=== PATIENT | male | born 1965 | race Caucasian/White ===

== ENCOUNTER 2017-02-11 08:33 | Inpatient (IN) | payer OTHER ==
[2017-02-11 10:08] VITALS: BMI 29.5
--- NOTE | 2017-02-11 12:17 | HP ---
CIWA Score - CIWA Score Nausea/Vomitin Muscle Tremors: 3 Anxiety: 3 Agitation: 3 Paroxysmal Sweats: 1-Minimal Palms Moist Orientation: 0-Oriented Tacttile Disturbances: 2-Mild Itch/Numbness/Burn Auditory Disturbances: 2-Mild Harshness/Frighten Visual Disturbances: 1-Very Mild Sensitivity Headache: 2-Mild CIWA-Ar Total Score: 20 Admission ROS BHS - HPI Chief Complaint: i need help to stop drinking alcohol Allergies/Adverse Reactions: Allergies Allergy/AdvReac Type Severity Reaction Status Date / Time No Known Allergies Allergy Verified 02/11/17 10:21 History of Present Illness: this 51 years old male with alcohol dependence,seeking detox,never been in detox before syncope nicotine dependence longest period of sobriety 18 months Exam Limitations: No Limitations - Ebola screening Have you been sick,other than usual withdrawal symptoms: No - Review of Systems Constitutional: Loss of Appetite, Malaise, Night Sweats, Changes in sleep, Weakness EENT: reports: Nose Congestion Respiratory: reports: No Symptoms reported Cardiac: reports: No Symptoms Reported GI: reports: Diarrhea, Nausea, Vomiting, Abdominal cramping : reports: No Symptoms Reported Musculoskeletal: reports: Back Pain, Muscle Pain Integumentary: reports: Dryness Endocrine: reports: No Symptoms Reported Hematology: reports: No Symptoms Reported Psychiatric: reports: No Sypmtoms Reported, Judgement Intact, Mood/Affect Appropiate, Orientated x3 Other Systems: Reviewed and Negative Patient History - Patient Medical History Hx Anemia: No Hx Asthma: No Hx Chronic Obstructive Pulmonary Disease (COPD): No Hx Cancer: No Hx Cardiac Disorders: No Hx Congestive Heart Failure: No Hx Hypertension: No Hx Hypercholesterolemia: No Hx Pacemaker: No HX Cerebrovascular Accident: No Hx Seizures: No Hx Dementia: No Hx Diabetes: No Hx Gastrointestinal Disorders: No Hx Liver Disease: No Hx Genitourinary Disorders: No Hx Sexually Transmitted Disorders: No Hx Renal Disease (ESRD): No Hx Thyroid Disease: No Hx Human Immunodeficiency Virus (HIV): No (last10/31 negative) Hx Hepatitis C: No Hx Depression: No Hx Suicide Attempt: No Hx Bipolar Disorder: No Hx Schizophrenia: No Other Medical History: no suicidal,no homicidal - Patient Surgical History Past Surgical History: Yes Hx Neurologic Surgery: No Hx Cataract Extraction: No Hx Cardiac Surgery: No Hx Lung Surgery: No Hx Breast Surgery: No Hx Breast Biopsy: No Hx Abdominal Surgery: No Hx Appendectomy: No Hx Cholecystectomy: No Hx Genitourinary Surgery: No Hx Orthopedic Surgery: Yes (fx, left elbow in 2009/right elbow in 2011) Anesthesia Reaction: No - PPD History Previous Implant?: Yes Documented Results: Negative w/o proof Implanted On Prior [facility] Admission?: No PPD to be Administered?: Yes - Smoking Cessation Smoking history: Current every day smoker Have you smoked in the past 12 months: Yes Aproximately how many cigarettes per day: 4 Hx Chewing Tobacco Use: No Initiated information on smoking cessation: Yes 'Breaking Loose' booklet given: 02/11/17 - Substance & Tx. History Hx Alcohol Use: Yes Hx Substance Use: No Substance Use Type: Alcohol Hx Substance Use Treatment: No - Substances Abused Alcohol-vodka Route: Oral Frequency: Daily Amount used: 2 pts. Age of first use: 18 Date of Last Use: 02/10/17 Family Disease History - Family Disease History Family History: Denies Admission Physical Exam [facility] - Vital Signs Vital Signs: Vital Signs - 24 hr 02/11/17 10:04 Temperature 97.9 F Pulse Rate 65 Respiratory 18 Rate Blood Pressure 152/93 - Physical General Appearance: Yes: Moderate Distress, Tremorous, Irritable, Sweating HEENTM: Yes: Normal ENT Inspection, DARIAN, Pharynx Normal Respiratory: Yes: Lungs Clear, Normal Breath Sounds, No Respiratory Distress Neck: Yes: Within Normal Limits, Supple, Trachea in good position Breast: Yes: Within Normal Limits Cardiology: Yes: Within Normal Limits, Regular Rhythm, Regular Rate, S1, S2 Abdominal: Yes: Within Normal Limits, Normal Bowel Sounds, Non Tender, Flat, Soft Genitourinary: Yes: Within Normal Limits Back: Yes: Muscle Spasm Musculoskeletal: Yes: Back pain, Joint Stiffness, Muscle Pain Extremities: Yes: Tremors, Other (scar in both elbows with deformity) 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, Alert, Motor Strength 5/5 Integumentary: Yes: Dry Lymphatic: Yes: Within Normal Limits - Diagnostic (1) Alcohol dependence with uncomplicated withdrawal Current Visit: Yes Status: Acute (2) Syncope Current Visit: Yes Status: Acute (3) Nicotine dependence Current Visit: Yes Status: Acute (4) Fracture of both elbows Current Visit: Yes Status: Acute Cleared for Admission S - Detox or Rehab [facility] Level of Care: Medically Managed Detox Regimen/Protocol: Librium [facility] Breath Alcohol Content Breath Alcohol Content: 0 Urine Drug Screen - Results Drug Screen Negative: Yes
[2017-02-11] MEDS ORDERED: P-EPHED 60MG/TRIPROLIDI 2.5MG TABLET PO PRN (12:36)
[2017-02-11] MEDS ORDERED: hydrOXYzine PAMOATE 50 MG CAPSULE (FP) PO PRN (12:36)
[2017-02-11] MEDS ORDERED: guaiFENesin/D-METHORPHAN HB 10 ML UNIT-DOSE CUPS PO PRN (12:36)
[2017-02-11] MEDS ORDERED: NICOTINE POLACRILEX 2 MG GUM BUC PRN (12:36)
[2017-02-11] MEDS ORDERED: chlordiazePOXIDE HCL 25 MG CAPSULE PO PRN (12:36)
[2017-02-11] MEDS ORDERED: MAG HYDROX/AL HYDROX/SIMETH 30 ML UNIT-DOSE CUP PO PRN (12:36)
[2017-02-11] MEDS ORDERED: MAGNESIUM HYDROX 2400MG/30ML ORAL SUSPENSION 30 ML CUP PO PRN (12:36)
[2017-02-11] MEDS ORDERED: ACETAMINOPHEN 325 MG TABLET (FP) PO PRN (12:36)
[2017-02-11] MEDS ORDERED: MAGNESIUM CITRATE 300 ML BOTTLE PO PRN (12:36)
[2017-02-11] MEDS ORDERED: MENTHOL/PHENOL 1 EACH UD MM PRN (12:36)
[2017-02-11] MEDS ORDERED: LOPERAMIDE HCL 2 MG CAPSULE PO PRN (12:36)
[2017-02-11] MEDS ORDERED: IBUPROFEN 400 MG TABLET (FP) PO PRN (12:36)
[2017-02-11] MEDS ORDERED: chlordiazePOXIDE HCL 25 MG CAPSULE PO ONE (12:50)
[2017-02-11] MEDS: NICOTINE 14 MG/24 HOURS TOPICAL PATCH TD SCH (13:43)
--- NOTE | 2017-02-11 15:54 | EKG ---
Test Reason : Blood Pressure : / mmHG Vent. Rate : 076 BPM Atrial Rate : 076 BPM P-R Int : 156 ms QRS Dur : 082 ms QT Int : 382 ms P-R-T Axes : 055 051 031 degrees QTc Int : 429 ms NORMAL SINUS RHYTHM WITH SINUS ARRHYTHMIA NORMAL ECG NO PREVIOUS ECGS AVAILABLE Confirmed by CARI KIM, SIA ([id number]) on 02/11/2017 3:53:56 PM Referred By: Don Greenberg Confirmed By:SIA ALCALA MD
[2017-02-11] MEDS: chlordiazePOXIDE HCL 25 MG CAPSULE PO SCH ×2 (17:23→22:30)
[2017-02-11 21:58] LABS: URINE APPEARANCE TURBID; URINE BILIRUBIN NEGATIVE (NEGATIVE); URINE BLOOD NEGATIVE (NEGATIVE); URINE COLOR AMBER; URINE GLUCOSE (UA) 2+ (NEGATIVE); URINE KETONE TRACE (NEGATIVE); URINE LEUK ESTERASE NEGATIVE (NEGATIVE); URINE NITRITE NEGATIVE (NEGATIVE); URINE UROBILINOGEN NEGATIVE mg/dL (0.2-1.0)
[2017-02-11 21:59] LABS: URINE PROTEIN 1+ (NEGATIVE)
[2017-02-11 22:04] LABS: URINE MUCUS MANY; URINE RBC 12 /hpf (0-3); URINE WBC 107 /hpf (3-5)
[2017-02-11] MEDS: diphenhydrAMINE HCL 50 MG CAPSULE PO PRN (22:30)
[2017-02-11] MEDS: THIAMINE HCL 100 MG TABLET (FP) PO SCH (22:30)
[2017-02-12] MEDS: chlordiazePOXIDE HCL 25 MG CAPSULE PO SCH ×4 (05:59→22:23)
[2017-02-12 09:40] LABS: MCH 32.5 pg (25.7-33.7); MCHC 33.8 g/dl (32.0-35.9); MEAN CELL VOLUME 96.2 fl (80-96); MEAN PLT VOLUME 8.8 fl (7.5-11.1); PLATELET COUNT 154 K/MM3 (134-434); WHITE BLOOD COUNT 5.2 K/mm3 (4.0-10.0)
[2017-02-12 10:01] LABS: ALBUMIN 4.2 g/dl (3.4-5.0); ALK PHOS 76 U/L (45-117); ANION GAP 4 (8-16); BILIRUBIN,TOTAL 1.1 mg/dL (0.2-1.0); CO2 29 mmol/L (21-32); CREATININE 0.9 mg/dL (0.7-1.3); GLUCOSE,RANDOM 120 mg/dL (74-106); SGOT/AST 55 U/L (15-37); SGPT/ALT 71 U/L (12-78); TOT PROT 7.7 g/dl (6.4-8.2)
[2017-02-12] MEDS: PRENATAL VITAMINS W/ FOLIC ACID TABLET (FP) PO SCH (10:48)
[2017-02-12] MEDS: NICOTINE 14 MG/24 HOURS TOPICAL PATCH TD SCH (10:49)
--- NOTE | 2017-02-12 14:50 | PN ---
S CIWA - CIWA Score Nausea/Vomitin-No Nausea/No Vomiting Muscle Tremors: 5 Anxiety: 3 Agitation: 0-Normal Activity Paroxysmal Sweats: No Perspiration Orientation: 0-Oriented Tacttile Disturbances: 2-Mild Itch/Numbness/Burn Auditory Disturbances: 2-Mild Harshness/Frighten Visual Disturbances: 2-Mild Sensitivity Headache: 4-Moderately Severe CIWA-Ar Total Score: 18 BHS Progress Note (SOAP) Subjective: Tremors, H/A, Fatigue, Sweating. Objective: PT. A & O X 3, OBSERVED AMBULATING ON UNIT. NO ACUTE DISTRESS. 02/12/17 14:48 Vital Signs Temperature 96.4 F L 02/12/17 13:18 Pulse Rate 97 H 02/12/17 13:18 Respiratory Rate 18 02/12/17 13:18 Blood Pressure 138/76 02/12/17 13:18 O2 Sat by Pulse Oximetry (%) Laboratory Tests 02/11/17 02/12/17 02/12/17 21:00 06:00 06:00 WBC 5.2 RBC 4.13 Hgb 13.4 Hct 39.8 MCV 96.2 H MCH 32.5 MCHC 33.8 RDW 14.0 Plt Count 154 MPV 8.8 Sodium 139 Potassium 4.5 Chloride 106 Carbon Dioxide 29 Anion Gap 4 L BUN 15 Creatinine 0.9 Creat Clearance w eGFR > 60 Random Glucose 120 H Calcium 9.0 Total Bilirubin 1.1 H AST 55 H ALT 71 Alkaline Phosphatase 76 Total Protein 7.7 Albumin 4.2 Urine Color Jennifer Urine Appearance Turbid Urine pH 5.0 Ur Specific [place] >= 1.030 H Urine Protein 1+ H Urine Glucose (UA) 2+ H Urine Ketones Trace H Urine Blood Negative Urine Nitrite Negative Urine Bilirubin Negative Urine Urobilinogen Negative Urine RBC 12 Urine WBC 107 Urine Mucus Many RPR Titer 02/12/17 06:00 WBC RBC Hgb Hct MCV MCH MCHC RDW Plt Count MPV Sodium Potassium Chloride Carbon Dioxide Anion Gap BUN Creatinine Creat Clearance w eGFR Random Glucose Calcium Total Bilirubin AST ALT Alkaline Phosphatase Total Protein Albumin Urine Color Urine Appearance Urine pH Ur Specific [place] Urine Protein Urine Glucose (UA) Urine Ketones Urine Blood Urine Nitrite Urine Bilirubin Urine Urobilinogen Urine RBC Urine WBC Urine Mucus RPR Titer Nonreactive LABS NOTED. Assessment: 02/12/17 14:49 WITHDRAWAL SYMPTOMS. Plan: CONTINUE DETOX.
[2017-02-12] MEDS: THIAMINE HCL 100 MG TABLET (FP) PO SCH (22:23)
[2017-02-12] MEDS: diphenhydrAMINE HCL 50 MG CAPSULE PO PRN (22:23)
[2017-02-13] MEDS: chlordiazePOXIDE HCL 25 MG CAPSULE PO SCH ×2 (05:57→10:55)
[2017-02-13 10:15] LABS: URINE APPEARANCE CLEAR; URINE BILIRUBIN NEGATIVE (NEGATIVE); URINE BLOOD NEGATIVE (NEGATIVE); URINE COLOR LTYELLOW; URINE GLUCOSE (UA) 1+ (NEGATIVE); URINE KETONE NEGATIVE (NEGATIVE); URINE LEUK ESTERASE NEGATIVE (NEGATIVE); URINE NITRITE NEGATIVE (NEGATIVE); URINE PROTEIN NEGATIVE (NEGATIVE); URINE UROBILINOGEN NEGATIVE mg/dL (0.2-1.0)
[2017-02-13] MEDS: PRENATAL VITAMINS W/ FOLIC ACID TABLET (FP) PO SCH (10:55)
[2017-02-13] MEDS: NICOTINE 14 MG/24 HOURS TOPICAL PATCH TD SCH (10:55)
--- NOTE | 2017-02-13 15:35 | PN ---
[facility] CIWA - CIWA Score Nausea/Vomitin-No Nausea/No Vomiting Muscle Tremors: 2 Anxiety: 4-Mod. Anxious/Guarded Agitation: 1-Slight > Activity Paroxysmal Sweats: 3 Orientation: 0-Oriented Tacttile Disturbances: 3-Moderate Itch/Numb/Burn Auditory Disturbances: 0-None Visual Disturbances: 2-Mild Sensitivity Headache: 0-None Present CIWA-Ar Total Score: 15 S Progress Note (SOAP) Subjective: Tremors, Sweating, Interrupted sleep. Objective: PT. A & O X 3, OBSERVED AMBULATING ON UNIT. NO ACUTE DISTRESS. PT. DENIES CHEST PAIN. 02/13/17 15:32 Vital Signs Temperature 97.2 F L 02/13/17 15:11 Pulse Rate 76 02/13/17 15:11 Respiratory Rate 18 02/13/17 15:11 Blood Pressure 113/79 02/13/17 15:11 O2 Sat by Pulse Oximetry (%) Laboratory Tests 02/11/17 02/12/17 02/12/17 21:00 06:00 06:00 WBC 5.2 RBC 4.13 Hgb 13.4 Hct 39.8 MCV 96.2 H MCH 32.5 MCHC 33.8 RDW 14.0 Plt Count 154 MPV 8.8 Sodium 139 Potassium 4.5 Chloride 106 Carbon Dioxide 29 Anion Gap 4 L BUN 15 Creatinine 0.9 Creat Clearance w eGFR > 60 POC Glucometer Random Glucose 120 H Calcium 9.0 Total Bilirubin 1.1 H AST 55 H ALT 71 Alkaline Phosphatase 76 Total Protein 7.7 Albumin 4.2 Urine Color Jennifer Urine Appearance Turbid Urine pH 5.0 Ur Specific [place] >= 1.030 H Urine Protein 1+ H Urine Glucose (UA) 2+ H Urine Ketones Trace H Urine Blood Negative Urine Nitrite Negative Urine Bilirubin Negative Urine Urobilinogen Negative Urine RBC 12 Urine WBC 107 Urine Mucus Many RPR Titer 02/12/17 02/13/17 02/13/17 06:00 05:51 08:00 WBC RBC Hgb Hct MCV MCH MCHC RDW Plt Count MPV Sodium Potassium Chloride Carbon Dioxide Anion Gap BUN Creatinine Creat Clearance w eGFR POC Glucometer 127 Random Glucose Calcium Total Bilirubin AST ALT Alkaline Phosphatase Total Protein Albumin Urine Color Ltyellow Urine Appearance Clear Urine pH 6.0 Ur Specific [place] 1.020 Urine Protein Negative Urine Glucose (UA) 1+ H Urine Ketones Negative Urine Blood Negative Urine Nitrite Negative Urine Bilirubin Negative Urine Urobilinogen Negative Urine RBC Urine WBC Urine Mucus RPR Titer Nonreactive LABS NOTED. RESULTS OF BGM AND REPEAT UA NOTED. 02/13/17 15:34 Assessment: 02/13/17 15:32 WITHDRAWAL SYMPTOMS. Plan: CONTINUE DETOX. INCREASE DAILY PO FLUID INTAKE. CONTINUE BGM ACBK.
[2017-02-13] MEDS: chlordiazePOXIDE 5 MG CAPSULE PO SCH ×2 (17:28→22:43)
[2017-02-13] MEDS: THIAMINE HCL 100 MG TABLET (FP) PO SCH (22:43)
[2017-02-13] MEDS: diphenhydrAMINE HCL 50 MG CAPSULE PO PRN (22:43)
[2017-02-14] MEDS: chlordiazePOXIDE 5 MG CAPSULE PO SCH ×2 (05:47→10:51)
[2017-02-14] MEDS: PRENATAL VITAMINS W/ FOLIC ACID TABLET (FP) PO SCH (10:51)
[2017-02-14] MEDS: NICOTINE 14 MG/24 HOURS TOPICAL PATCH TD SCH (10:52)
--- NOTE | 2017-02-14 14:53 | PN ---
BHS Progress Note (SOAP) Subjective: Nausea, anxious, sweating, interrupted sleep Objective: 02/14/17 14:51 Last Vital Signs Temp Pulse Resp BP Pulse Ox 98.5 F 78 18 115/74 02/14/17 14:35 02/14/17 14:35 02/14/17 14:35 02/14/17 14:35 Laboratory Tests 02/11/17 02/12/17 02/12/17 21:00 06:00 06:00 WBC 5.2 RBC 4.13 Hgb 13.4 Hct 39.8 MCV 96.2 H MCH 32.5 MCHC 33.8 RDW 14.0 Plt Count 154 MPV 8.8 Sodium 139 Potassium 4.5 Chloride 106 Carbon Dioxide 29 Anion Gap 4 L BUN 15 Creatinine 0.9 Creat Clearance w eGFR > 60 POC Glucometer Random Glucose 120 H Calcium 9.0 Total Bilirubin 1.1 H AST 55 H ALT 71 Alkaline Phosphatase 76 Total Protein 7.7 Albumin 4.2 Urine Color Jennifer Urine Appearance Turbid Urine pH 5.0 Ur Specific [place] >= 1.030 H Urine Protein 1+ H Urine Glucose (UA) 2+ H Urine Ketones Trace H Urine Blood Negative Urine Nitrite Negative Urine Bilirubin Negative Urine Urobilinogen Negative Urine RBC 12 Urine WBC 107 Urine Mucus Many RPR Titer 02/12/17 02/13/17 02/13/17 06:00 05:51 08:00 WBC RBC Hgb Hct MCV MCH MCHC RDW Plt Count MPV Sodium Potassium Chloride Carbon Dioxide Anion Gap BUN Creatinine Creat Clearance w eGFR POC Glucometer 127 Random Glucose Calcium Total Bilirubin AST ALT Alkaline Phosphatase Total Protein Albumin Urine Color Ltyellow Urine Appearance Clear Urine pH 6.0 Ur Specific [place] 1.020 Urine Protein Negative Urine Glucose (UA) 1+ H Urine Ketones Negative Urine Blood Negative Urine Nitrite Negative Urine Bilirubin Negative Urine Urobilinogen Negative Urine RBC Urine WBC Urine Mucus RPR Titer Nonreactive 02/14/17 05:47 WBC RBC Hgb Hct MCV MCH MCHC RDW Plt Count MPV Sodium Potassium Chloride Carbon Dioxide Anion Gap BUN Creatinine Creat Clearance w eGFR POC Glucometer 129 Random Glucose Calcium Total Bilirubin AST ALT Alkaline Phosphatase Total Protein Albumin Urine Color Urine Appearance Urine pH Ur Specific [place] Urine Protein Urine Glucose (UA) Urine Ketones Urine Blood Urine Nitrite Urine Bilirubin Urine Urobilinogen Urine RBC Urine WBC Urine Mucus RPR Titer Labs noted: fasting serum glucose x 2 of 127 and 129; glycosuria Assessment: 02/14/17 14:52 Withdrawal symptoms Noted with hyperglycemia and glycosuria Plan: Continue detox Hyperglycemia and 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
[2017-02-14] MEDS ORDERED: metFORMIN HCL 500 MG TABLET (FP) PO ONE (16:30)
[2017-02-14] MEDS: chlordiazePOXIDE HCL 10 MG CAPSULE PO SCH ×2 (17:32→22:20)
[2017-02-14] MEDS: INSULIN SLIDING SCALE (NOVOLOG) 1 VIAL SQ SCH (17:32)
[2017-02-14] MEDS: THIAMINE HCL 100 MG TABLET (FP) PO SCH (22:20)
[2017-02-14] MEDS: diphenhydrAMINE HCL 50 MG CAPSULE PO PRN (22:20)
[2017-02-15] MEDS: chlordiazePOXIDE HCL 10 MG CAPSULE PO SCH (05:34)
[2017-02-15] MEDS ORDERED: metFORMIN HCL 500 MG TABLET (FP) PO SCH (07:00)
[2017-02-15] MEDS: INSULIN SLIDING SCALE (NOVOLOG) 1 VIAL SQ SCH (08:01)
[2017-02-15 08:57] VITALS: BP 143/79; PULSE 101; TEMP 96.8
--- NOTE | 2017-02-15 12:05 | DS ---
[facility] Detox Discharge Summary Admission Date: 02/11/17 Discharge Date: 02/15/17 - History Present History: Alcohol Dependence Additional Comments: ALERT, O X 3. ALERT O X3. NAD. PT REMINDED TO FOLLOW UP WITH PCP AT [facility] FOR MEDICAL MANAGEMENT OF COMORBID/ELEVATED BLOOD SUGAR CONDITION. Pertinent Past History: HX FRACTURE BOTH ELBOWS - Physical Exam Results Vital Signs: Vital Signs Temperature 96.8 F L 02/15/17 08:57 Pulse Rate 101 H 02/15/17 08:57 Respiratory Rate 20 02/15/17 08:57 Blood Pressure 143/79 02/15/17 08:57 O2 Sat by Pulse Oximetry (%) Pertinent Admission Physical Exam Findings: WITHDRAWAL SX Laboratory Last Values WBC 5.2 K/mm3 (4.0-10.0) 02/12/17 06:00 RBC 4.13 M/mm3 (4.00-5.60) 02/12/17 06:00 Hgb 13.4 GM/dL (11.7-16.9) 02/12/17 06:00 Hct 39.8 % (35.4-49) 02/12/17 06:00 MCV 96.2 fl (80-96) H 02/12/17 06:00 MCH 32.5 pg (25.7-33.7) 02/12/17 06:00 MCHC 33.8 g/dl (32.0-35.9) 02/12/17 06:00 RDW 14.0 % (11.9-15.9) 02/12/17 06:00 Plt Count 154 K/MM3 (134-434) 02/12/17 06:00 MPV 8.8 fl (7.5-11.1) 02/12/17 06:00 Sodium 139 mmol/L (136-145) 02/12/17 06:00 Potassium 4.5 mmol/L (3.5-5.1) 02/12/17 06:00 Chloride 106 mmol/L (98-107) 02/12/17 06:00 Carbon Dioxide 29 mmol/L (21-32) 02/12/17 06:00 Anion Gap 4 (8-16) L 02/12/17 06:00 BUN 15 mg/dL (7-18) 02/12/17 06:00 Creatinine 0.9 mg/dL (0.7-1.3) 02/12/17 06:00 Creat Clearance w eGFR > 60 (>60) 02/12/17 06:00 POC Glucometer 145 UNITS (()) 02/15/17 05:33 Random Glucose 120 mg/dL (74-106) H 02/12/17 06:00 Calcium 9.0 mg/dL (8.5-10.1) 02/12/17 06:00 Total Bilirubin 1.1 mg/dL (0.2-1.0) H 02/12/17 06:00 AST 55 U/L (15-37) H 02/12/17 06:00 ALT 71 U/L (12-78) 02/12/17 06:00 Alkaline Phosphatase 76 U/L (45-117) 02/12/17 06:00 Total Protein 7.7 g/dl (6.4-8.2) 02/12/17 06:00 Albumin 4.2 g/dl (3.4-5.0) 02/12/17 06:00 Urine Color Ltyellow 02/13/17 08:00 Urine Appearance Clear 02/13/17 08:00 Urine pH 6.0 (5.0-8.0) 02/13/17 08:00 Ur Specific [place] 1.020 (1.005-1.025) 02/13/17 08:00 Urine Protein Negative (NEGATIVE) 02/13/17 08:00 Urine Glucose (UA) 1+ (NEGATIVE) H 02/13/17 08:00 Urine Ketones Negative (NEGATIVE) 02/13/17 08:00 Urine Blood Negative (NEGATIVE) 02/13/17 08:00 Urine Nitrite Negative (NEGATIVE) 02/13/17 08:00 Urine Bilirubin Negative (NEGATIVE) 02/13/17 08:00 Urine Urobilinogen Negative mg/dL (0.2-1.0) 02/13/17 08:00 Urine RBC 12 /hpf (0-3) 02/11/17 21:00 Urine WBC 107 /hpf (3-5) 02/11/17 21:00 Urine Mucus Many 02/11/17 21:00 RPR Titer Nonreactive (NONREACTIVE) 02/12/17 06:00 - Treatment Hospital Course: Detox Protocol Followed, Detoxed Safely, Responded well, Discharged Condition Good - Medication Discharge Medications: Ambulatory Orders NK [No Known Home Medication] 02/11/17 - Diagnosis (1) Alcohol dependence with uncomplicated withdrawal Status: Acute (2) Nicotine dependence Status: Acute Qualifiers: Nicotine product type: cigarettes Substance use status: in withdrawal Qualified Code(s): F17.213 - Nicotine dependence, cigarettes, with withdrawal; F17.213 - Nicotine dependence, cigarettes, with withdrawal - AMA Did Patient Leave Against Medical Advice: No
== END 2017-02-15 09:11 | disposition home or self-care (01) | DRG 897 ==
LOC: YASAS 08:33 → Y3N 12:38
PROVIDERS: ADMIT Internal Medicine; ATTEND Internal Medicine
PROC: HZ2ZZZZ Detoxification Services for Substance Abuse Treatment (ICD-10-PCS; principal; 2017-02-09)
DX: F10.230 Alcohol dependence with withdrawal, uncomplicated (principal); F17.213 Nicotine dependence, cigarettes, with withdrawal; R73.9 Hyperglycemia, unspecified; R81 Glycosuria; Z86.79 Personal history of other diseases of the circulatory system; Z87.81 Personal history of (healed) traumatic fracture
CPT/HCPCS: 36415; 80053; 81003; 81015; 85027; 86593; 93005; 93010

== ENCOUNTER 2017-02-16 08:34 | Inpatient (IN) | payer OTHER ==
[2017-02-16 08:54] VITALS: BMI 30.1
--- NOTE | 2017-02-16 11:30 | HP ---
MICHAEL KIM Rehab Assess/Revision - Admission History Admitted to Rehab from: [facility] [place] Date of Admission to Rehab: 02/16/17 - Vital signs Vital Signs: Vital Signs Period Temp Pulse Resp BP Sys/Bhatia Pulse Ox Last 24 Hr 98 F 81 20 142/99 - Findings Detox History & Physical reviewed: Yes Concur with findings: Yes Comments/Additional Findings: FOR REHAB PROTOCOL
--- NOTE | 2017-02-16 11:30 | HP ---
Admission [facility] Allergies/Adverse Reactions: Allergies Allergy/AdvReac Type Severity Reaction Status Date / Time No Known Allergies Allergy Verified 02/16/17 09:51 - Ebola screening Have you been sick,other than usual withdrawal symptoms: No Patient History - Patient Medical History Hx Anemia: No Hx Asthma: No Hx Chronic Obstructive Pulmonary Disease (COPD): No Hx Cancer: No Hx Cardiac Disorders: No Hx Congestive Heart Failure: No Hx Hypertension: No Hx Hypercholesterolemia: No Hx Pacemaker: No HX Cerebrovascular Accident: No Hx Seizures: No Hx Dementia: No Hx Diabetes: No Hx Gastrointestinal Disorders: No Hx Liver Disease: No Hx Genitourinary Disorders: No Hx Sexually Transmitted Disorders: No Hx Renal Disease (ESRD): No Hx Thyroid Disease: No Hx Human Immunodeficiency Virus (HIV): No (last10/31 negative) Hx Hepatitis C: No Hx Depression: No Hx Suicide Attempt: No Hx Bipolar Disorder: No Hx Schizophrenia: No - Patient Surgical History Past Surgical History: Yes Hx Neurologic Surgery: No Hx Cataract Extraction: No Hx Cardiac Surgery: No Hx Lung Surgery: No Hx Breast Surgery: No Hx Breast Biopsy: No Hx Abdominal Surgery: No Hx Appendectomy: No Hx Cholecystectomy: No Hx Genitourinary Surgery: No Hx Orthopedic Surgery: Yes (fx, left elbow in 2008/right elbow in 2011) Anesthesia Reaction: No - PPD History Previous Implant?: Yes Documented Results: Negative w/proof Implanted On Prior [facility] Admission?: Yes Date: 02/13/17 Results: 0 mm - Smoking Cessation Smoking history: Current every day smoker Have you smoked in the past 12 months: Yes Aproximately how many cigarettes per day: 4 Hx Chewing Tobacco Use: No Initiated information on smoking cessation: Yes 'Breaking Loose' booklet given: 02/16/17 - Substances Abused Alcohol-vodka Route: Oral Frequency: Daily Amount used: 2 pts. Age of first use: 19 Date of Last Use: 02/10/17 Admission Physical Exam S - Vital Signs Vital Signs: Vital Signs - 24 hr 02/16/17 08:53 Temperature 98 F Pulse Rate 81 Respiratory 20 Rate Blood Pressure 142/99 BHS Breath Alcohol Content Breath Alcohol Content: 0 Urine Drug Screen - Results Drug Screen Negative: No Urine Drug Screen Results: BZO-Benzodiazepines Inpatient Rehab Admission - Initial Determination Are CD services needed?: Yes Free of communicable disease: Yes Not in need of hospitalization: Yes - Rehab Admission Criteria Poor recovery environment: Yes Patient is meeting Inpatient Rehab admission criteria:: Yes
[2017-02-16] MEDS ORDERED: LOPERAMIDE HCL 2 MG CAPSULE PO PRN (11:32)
[2017-02-16] MEDS ORDERED: MAGNESIUM CITRATE 300 ML BOTTLE PO PRN (11:32)
[2017-02-16] MEDS ORDERED: MENTHOL/PHENOL 1 EACH UD MM PRN (11:32)
[2017-02-16] MEDS ORDERED: ACETAMINOPHEN 325 MG TABLET (FP) PO PRN (11:32)
[2017-02-16] MEDS ORDERED: MAG HYDROX/AL HYDROX/SIMETH 30 ML UNIT-DOSE CUP PO PRN (11:32)
[2017-02-16] MEDS ORDERED: P-EPHED 60MG/TRIPROLIDI 2.5MG TABLET PO PRN (11:32)
[2017-02-16] MEDS ORDERED: IBUPROFEN 400 MG TABLET (FP) PO PRN (11:32)
[2017-02-16] MEDS ORDERED: MAGNESIUM HYDROX 2400MG/30ML ORAL SUSPENSION 30 ML CUP PO PRN (11:32)
[2017-02-16] MEDS ORDERED: guaiFENesin/D-METHORPHAN HB 10 ML UNIT-DOSE CUPS PO PRN (11:32)
[2017-02-16] MEDS ORDERED: hydrOXYzine PAMOATE 50 MG CAPSULE (FP) PO PRN (11:32)
--- NOTE | 2017-02-16 14:12 | HP ---
Psychiatrist Admission - Data Date of interview: 02/16/17 Admission source: Friend Identifying data: This is the first [facility] admission for this 51 years old male, father of 2 children, unemployed with no source of income, living with his family Medical History: Significant for history of orthosurgery for fracture left elbow in 2009 & right elbow in 2012. Smokes 4 cigarettes daily Psychiatric History: Denies history of previous psychiatric treatment Physical/Sexual Abuse/Trauma History: Denies history of verbal, physical or sexual abuse as well as DV relationship Additional Comment: Reports one previous arrest for DWI. 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 Last drank on 02/10/17) Hx Substance Use Treatment: Yes (one previous inpt @ [facility] inpt rehab) Mental Status Exam - Mental Status Exam Alert and Oriented to: Time, Place, Person Cognitive Function: Fair Patient Appearance: Well Groomed Mood: Hopeful, Euthymic Affect: Constricted Patient Behavior: Cooperative Speech Pattern: Clear Voice Loudness: Normal Thought Process: Intact, Goal Oriented Thought Disorder: Not Present Hallucinations: Denies Suicidal Ideation: Denies Homicidal Ideation: Denies Insight/Judgement: Fair Sleep: Fair Appetite: Good Muscle strength/Tone: Normal Gait/Station: Normal Psychiatric Findings - Problem List ([place] 1, 2,3) (1) Alcohol dependence Current Visit: Yes Status: Acute (2) Nicotine dependence Current Visit: No Status: Acute Qualifiers: Nicotine product type: cigarettes Substance use status: in withdrawal Qualified Code(s): F17.213 - Nicotine dependence, cigarettes, with withdrawal; F17.213 - Nicotine dependence, cigarettes, with withdrawal (3) Fracture of both elbows Current Visit: No Status: Acute - Initial Treatment Plan Initial Treatment Plan: Monitor progress
[2017-02-16] MEDS: THIAMINE HCL 100 MG TABLET (FP) PO SCH (21:37)
[2017-02-16] MEDS: diphenhydrAMINE HCL 50 MG CAPSULE PO PRN (21:37)
[2017-02-17] MEDS: PRENATAL VITAMINS W/ FOLIC ACID TABLET (FP) PO SCH (09:49)
[2017-02-17] MEDS: THIAMINE HCL 100 MG TABLET (FP) PO SCH (21:17)
[2017-02-17] MEDS: diphenhydrAMINE HCL 50 MG CAPSULE PO PRN (21:17)
[2017-02-18] MEDS: PRENATAL VITAMINS W/ FOLIC ACID TABLET (FP) PO SCH (09:25)
[2017-02-18] MEDS ORDERED: NICOTINE POLACRILEX 4 MG GUM BUC PRN (17:56)
[2017-02-18] MEDS ORDERED: NICOTINE 21 MG/24 HOURS TOPICAL PATCH TD PRN (17:57)
--- NOTE | 2017-02-18 17:58 | PN ---
S Progress Note Note: RECEIVED NURSE CALL THAT THE PATIENT SMOKE A PACK OF CIGARETTE DAILY NICOTINE REPLACEMENT THERAPY CONTINUE REHAB
[2017-02-18] MEDS: THIAMINE HCL 100 MG TABLET (FP) PO SCH (21:35)
[2017-02-18] MEDS: diphenhydrAMINE HCL 50 MG CAPSULE PO PRN (21:36)
[2017-02-19] MEDS: PRENATAL VITAMINS W/ FOLIC ACID TABLET (FP) PO SCH (10:19)
[2017-02-19] MEDS: THIAMINE HCL 100 MG TABLET (FP) PO SCH (21:22)
[2017-02-19] MEDS: diphenhydrAMINE HCL 50 MG CAPSULE PO PRN (21:22)
[2017-02-20] MEDS: PRENATAL VITAMINS W/ FOLIC ACID TABLET (FP) PO SCH (09:44)
[2017-02-20] MEDS: THIAMINE HCL 100 MG TABLET (FP) PO SCH (21:33)
[2017-02-21] MEDS: PRENATAL VITAMINS W/ FOLIC ACID TABLET (FP) PO SCH (09:39)
[2017-02-21] MEDS: THIAMINE HCL 100 MG TABLET (FP) PO SCH (21:49)
[2017-02-21] MEDS: diphenhydrAMINE HCL 50 MG CAPSULE PO PRN (21:50)
[2017-02-22] MEDS: PRENATAL VITAMINS W/ FOLIC ACID TABLET (FP) PO SCH (09:49)
[2017-02-22] MEDS: THIAMINE HCL 100 MG TABLET (FP) PO SCH (21:08)
[2017-02-23] MEDS: PRENATAL VITAMINS W/ FOLIC ACID TABLET (FP) PO SCH (09:49)
[2017-02-23] MEDS: THIAMINE HCL 100 MG TABLET (FP) PO SCH (22:38)
[2017-02-24] MEDS: PRENATAL VITAMINS W/ FOLIC ACID TABLET (FP) PO SCH (10:24)
[2017-02-24] MEDS: diphenhydrAMINE HCL 50 MG CAPSULE PO PRN (22:00)
[2017-02-24] MEDS: THIAMINE HCL 100 MG TABLET (FP) PO SCH (22:00)
[2017-02-25] MEDS: PRENATAL VITAMINS W/ FOLIC ACID TABLET (FP) PO SCH (10:17)
[2017-02-25] MEDS: THIAMINE HCL 100 MG TABLET (FP) PO SCH (21:16)
[2017-02-26] MEDS: PRENATAL VITAMINS W/ FOLIC ACID TABLET (FP) PO SCH (09:48)
[2017-02-26] MEDS: THIAMINE HCL 100 MG TABLET (FP) PO SCH (21:20)
[2017-02-27] MEDS: PRENATAL VITAMINS W/ FOLIC ACID TABLET (FP) PO SCH (09:35)
[2017-02-27] MEDS: THIAMINE HCL 100 MG TABLET (FP) PO SCH (21:30)
[2017-02-28] MEDS: PRENATAL VITAMINS W/ FOLIC ACID TABLET (FP) PO SCH (09:47)
[2017-02-28] MEDS: THIAMINE HCL 100 MG TABLET (FP) PO SCH (22:04)
[2017-03-01] MEDS: PRENATAL VITAMINS W/ FOLIC ACID TABLET (FP) PO SCH (09:45)
--- NOTE | 2017-03-01 14:50 | PN ---
Psychiatric Progress Note Vital Signs: Vital Signs Period Temp Pulse Resp BP Sys/Bhatia Pulse Ox Last 24 Hr 97.5 F 58 18-18 123/73 Date of Session: 03/01/17 Chief Complaint:: Discharge Note HPI: Patient addressing Alcohol Dependence comorbid with Nicotine Dependence Current Medications: Active Medications Generic Name Dose Route Start Last Admin Trade Name Freq PRN Reason Stop Dose Admin Acetaminophen 650 mg 02/16/17 11:32 Tylenol - PO Q4H PRN FEVER OR PAIN Al Hydroxide/Mg Hydroxide 30 ml 02/16/17 11:32 Mylanta Oral Suspension - PO Q6H PRN DYSPEPSIA Diphenhydramine HCl 50 mg 02/16/17 11:32 02/24/17 22:00 Benadryl - PO 50 mg HSMR1 PRN Administration FOR ITCHING Eucalyptus/Menthol/Phenol/Sorbitol 1 each 02/16/17 11:32 Cepastat Lozenge - MM Q4H PRN SORE THROAT Guaifenesin 10 ml 02/16/17 11:32 Robitussin Dm - PO Q6H PRN COUGH Hydroxyzine Pamoate 50 mg 02/16/17 11:32 Vistaril - PO Q4H PRN AGITATION Ibuprofen 400 mg 02/16/17 11:32 Motrin - PO Q6H PRN PAIN Loperamide HCl 4 mg 02/16/17 11:32 Imodium - PO Q6H PRN DIARRHEA Magnesium Hydroxide 30 ml 02/16/17 11:32 Milk Of Magnesia - PO DAILY PRN CONSTIPATION Nicotine 21 mg 02/18/17 17:57 Nicoderm Patch - TD DAILY PRN WITHDRAWAL(CONT SUBST) Nicotine Polacrilex 4 mg 02/18/17 17:56 Nicorette Gum - BUC Q2H PRN NICOTINE REPLACEMENT RX Multivit/Folic Acid/Iron 1 tab 02/17/17 10:00 03/01/17 09:45 Vitamins (Sj[facility]) - PO 1 tab DAILY PATRIC Administration Pseudoephedrine/Triprolidine 1 combo 02/16/17 11:32 Actifed - PO TID PRN NASAL CONGESTION Thiamine HCl 100 mg 02/16/17 22:00 02/28/17 22:04 Vitamin B1 - PO 100 mg HS PATRIC Administration Current Side Effect: No Lab tests ordered: Yes Lab tests reviewed: Yes Provider note:: Patient will complete this program on 03/02/17. He has met his treatment goals and will continue to address his issues in outpatient treatment at [facility]. 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 He is stable for discharge on 03/02/17 Total face to face time:: 35 Mental Status Exam - Mental Status Exam Alert and Oriented to: Time, Place, Person Cognitive Function: Fair Patient Appearance: Well Groomed Mood: Hopeful, Euthymic Affect: Appropriate Patient Behavior: Cooperative Speech Pattern: Clear Voice Loudness: Normal Thought Process: Intact, Goal Oriented Thought Disorder: Not Present Hallucinations: Denies Suicidal Ideation: Denies Homicidal Ideation: Denies Insight/Judgement: Fair Sleep: Well Appetite: Good Muscle strength/Tone: Normal Gait/Station: Normal Psychiatric Treatment Plan - Problem List (1) Alcohol dependence Current Visit: Yes (2) Nicotine dependence Current Visit: No Qualifiers: Nicotine product type: cigarettes Substance use status: in withdrawal Qualified Code(s): F17.213 - Nicotine dependence, cigarettes, with withdrawal; F17.213 - Nicotine dependence, cigarettes, with withdrawal (3) Fracture of both elbows Current Visit: No Initial treatment plan: Patient is discharged tomorrow and referred to [facility] for outpatient treatment
[2017-03-01] MEDS: THIAMINE HCL 100 MG TABLET (FP) PO SCH (21:16)
[2017-03-02 06:55] VITALS: BP 133/87; PULSE 57; TEMP 98.3
== END 2017-03-02 09:25 | disposition home or self-care (01) | DRG 895 ==
LOC: YASAS 08:34 → Y3W 11:34
PROVIDERS: ADMIT Psychiatry & Neurology Psychiatry; ATTEND Psychiatry & Neurology Psychiatry
PROC: HZ42ZZZ Group Counseling for Substance Abuse Treatment, Cognitive-Behavioral (ICD-10-PCS; principal; 2017-02-16)
DX: F10.20 Alcohol dependence, uncomplicated (principal); F17.213 Nicotine dependence, cigarettes, with withdrawal; Z87.81 Personal history of (healed) traumatic fracture